=== PATIENT | female | born 1960 | race African-American/Black ===

== ENCOUNTER 2017-05-10 22:05 | Emergency (ER) | payer OTHER ==
[~2017-05-10] VITALS: Ht 167.6 cm; Wt 65.0 kg
[2017-05-10 23:44] VITALS: BP 132/66
== END 2017-05-11 04:03 | disposition left against medical advice (07) ==
LOC: ER 22:05
DX: R10.9 Unspecified abdominal pain (principal); Z53.21 Procedure and treatment not carried out due to patient leaving prior to being seen by health care provider

== ENCOUNTER 2021-12-28 15:50 | Emergency (ER) | payer OTHER ==
[~2021-12-28] VITALS: Ht 162.6 cm; Wt 70.0 kg
[2021-12-28 15:54] VITALS: BP 153/76
[2021-12-28] MEDS ORDERED: HYDROCODONE/ACETAMINOPHEN 5/325MG TABLET PO NR (19:35)
[2021-12-28] MEDS ORDERED: BACITRACIN ZINC OINT UDPKT TOP ONE (19:45)
[2021-12-28] MEDS ORDERED: IBUP-2029 MT (21:25)
== END 2021-12-28 21:43 | disposition home or self-care (01) ==
LOC: ER 15:50
DX: S82.64XA Nondisplaced fracture of lateral malleolus of right fibula, initial encounter for closed fracture (principal); S92.351A Displaced fracture of fifth metatarsal bone, right foot, initial encounter for closed fracture; S01.81XA Laceration without foreign body of other part of head, initial encounter; J45.909 Unspecified asthma, uncomplicated; W01.0XXA Fall on same level from slipping, tripping and stumbling without subsequent striking against object, initial encounter; Y93.89 Activity, other specified; Y92.018 Other place in single-family (private) house as the place of occurrence of the external cause
CPT/HCPCS: 29515; 73610; 73630; 99284